=== PATIENT | male | born 1970 | race Caucasian/White ===

== ENCOUNTER 2016-08-21 03:16 | Emergency (ER) | payer MEDICAID ==
[2016-08-21] MEDS ORDERED: Ketorolac 60 MG/2 ML SDV IM ONE (03:40)
[2016-08-21] MEDS ORDERED: HYDROmorphone 1 MG/ML Syringe IM ONE (03:41)
[2016-08-21] MEDS ORDERED: Morphine 10 MG/ML Syringe IVPUSH ONE (04:38)
[2016-08-21] MEDS ORDERED: Sodium Chloride 0.9% 1,000 ML IV SCH (05:45)
--- NOTE | 2016-08-21 06:58 | EDM.PDOC ---
<Savannha Duncan - Last Filed: 08/21/16 12:31> ED HPI LOWER BACK PAIN/INJURY - General Chief Complaint: Back Pain or Injury Stated Complaint: BACK PAIN Time Seen by Provider: 08/21/16 03:34 - Related Data Allergies/ADRs: Allergies Allergy/AdvReac Type Severity Reaction Status Date / Time Penicillins Allergy Cannot Verified 08/21/16 03:25 Remember venom-honey bee Allergy Hives Verified 08/21/16 03:25 [bee venom (honey bee)] Home Meds: Home Meds Lisinopril [Prinivil] 10 mg PO DAILY #30 tablet 02/05/15 [Rx] Metoprolol Tartrate [Lopressor] 50 mg PO BID #60 tablet 02/05/15 [Rx] Omeprazole 40 mg PO DAILY 03/10/16 [History] Course - Vital Signs Last Recorded V/S: Last Vital Signs Temp 36.7 C 08/21/16 11:36 Pulse 92 08/21/16 12:43 Resp 16 08/21/16 12:43 BP 132/89 08/21/16 12:43 Pulse Ox 94 L 08/21/16 12:43 - Orders/Labs/Meds Orders: Active Orders 24 hr Category Date Time Status Lumbar Spine w Cont [CT] Stat Exams 08/21/16 05:37 Taken Labs: Laboratory Tests 08/21/16 08/21/16 08/21/16 Range/Units 03:49 03:49 03:49 WBC 11.5 H (4.5-11.0) K/uL RBC 4.29 L (4.30-5.90) M/uL Hgb 13.2 (12.0-15.0) g/dL Hct 39.7 L (40.0-54.0) % MCV 93 (80-98) fL MCH 31 (27-31) pg MCHC 33 (32-36) % Plt Count 572 H (150-400) K/uL Neut % (Auto) 56 (36-66) % Lymph % (Auto) 34 (24-44) % [place] % (Auto) 7 H (2-6) % Eos % (Auto) 3 (2-4) % Baso % (Auto) 1 (0-1) % ESR 105 H (0-20) mm/hr Sodium (140-148) mmol/L Potassium (3.6-5.2) mmol/L Chloride (100-108) mmol/L Carbon Dioxide (21-32) mmol/L Anion Gap (5.0-14.0) mmol/L BUN (7-18) mg/dL Creatinine (0.8-1.3) mg/dL Est Cr Clr Drug Dosing mL/min Estimated GFR (MDRD) (>60) Glucose (74-106) mg/dL Calcium (8.5-10.1) mg/dL Total Bilirubin (0.2-1.0) mg/dL AST (15-37) U/L ALT (12-78) U/L Alkaline Phosphatase (46-116) U/L C-Reactive Protein 1.86 H (0.0-0.3) mg/dL Total Protein (6.4-8.2) g/dL Albumin (3.4-5.0) g/dL Globulin (2.3-3.5) g/dL Albumin/Globulin Ratio (1.2-2.2) Urine Color Urine Appearance Urine pH (4.5-8.0) Ur Specific [place] (1.008-1.030) Urine Protein (NEGATIVE) mg/dL Urine Glucose (UA) (NEGATIVE) mg/dL Urine Ketones (NEGATIVE) mg/dL Urine Occult Blood (NEGATIVE) Urine Nitrite (NEGAITVE) Urine Bilirubin (NEGATIVE) Urine Urobilinogen (NORMAL) mg/dL Ur Leukocyte Esterase (NEGATIVE) Urine RBC (0-5) Urine WBC (0-5) Ur Epithelial Cells Amorphous Sediment Urine Bacteria Urine Mucus Urine Opiates Screen (NEGATIVE) Ur Oxycodone Screen (NEGATIVE) Urine Methadone Screen (NEGATIVE) Ur Propoxyphene Screen (NEGATIVE) Ur Barbiturates Screen (NEGATIVE) Ur Tricyclics Screen (NEGATIVE) Ur Phencyclidine Scrn (NEGATIVE) Ur Amphetamine Screen (NEGATIVE) U Methamphetamines Scrn (NEGATIVE) Urine MDMA Screen (NEGATIVE) U Benzodiazepines Scrn (NEGATIVE) U Cocaine Metab Screen (NEGATIVE) U Marijuana (THC) Screen (NEGATIVE) Ethyl Alcohol 198 mg/dL 08/21/16 08/21/16 08/21/16 Range/Units 04:49 04:49 05:15 WBC (4.5-11.0) K/uL RBC (4.30-5.90) M/uL Hgb (12.0-15.0) g/dL Hct (40.0-54.0) % MCV (80-98) fL MCH (27-31) pg MCHC (32-36) % Plt Count (150-400) K/uL Neut % (Auto) (36-66) % Lymph % (Auto) (24-44) % [place] % (Auto) (2-6) % Eos % (Auto) (2-4) % Baso % (Auto) (0-1) % ESR (0-20) mm/hr Sodium 147 (140-148) mmol/L Potassium 4.3 (3.6-5.2) mmol/L Chloride 107 (100-108) mmol/L Carbon Dioxide 24 (21-32) mmol/L Anion Gap 16.0 H (5.0-14.0) mmol/L BUN 10 (7-18) mg/dL Creatinine 0.9 (0.8-1.3) mg/dL Est Cr Clr Drug Dosing 111.56 mL/min Estimated GFR (MDRD) > 60 (>60) Glucose 107 H (74-106) mg/dL Calcium 9.0 D (8.5-10.1) mg/dL Total Bilirubin 0.2 D (0.2-1.0) mg/dL AST 37 (15-37) U/L ALT 70 D (12-78) U/L Alkaline Phosphatase 202 H D (46-116) U/L C-Reactive Protein (0.0-0.3) mg/dL Total Protein 8.3 H (6.4-8.2) g/dL Albumin 3.3 L (3.4-5.0) g/dL Globulin 5.0 H (2.3-3.5) g/dL Albumin/Globulin Ratio 0.7 L (1.2-2.2) Urine Color Yellow Urine Appearance Clear Urine pH 5.0 (4.5-8.0) Ur Specific [place] 1.025 (1.008-1.030) Urine Protein 30 H (NEGATIVE) mg/dL Urine Glucose (UA) Normal (NEGATIVE) mg/dL Urine Ketones Negative (NEGATIVE) mg/dL Urine Occult Blood Moderate (NEGATIVE) Urine Nitrite Negative (NEGAITVE) Urine Bilirubin Negative (NEGATIVE) Urine Urobilinogen Normal (NORMAL) mg/dL Ur Leukocyte Esterase Negative (NEGATIVE) Urine RBC 5-10 H (0-5) Urine WBC Not seen (0-5) Ur Epithelial Cells Not seen Amorphous Sediment Not seen Urine Bacteria Not seen Urine Mucus Moderate Urine Opiates Screen Negative (NEGATIVE) Ur Oxycodone Screen Positive H (NEGATIVE) Urine Methadone Screen Negative (NEGATIVE) Ur Propoxyphene Screen Negative (NEGATIVE) Ur Barbiturates Screen Negative (NEGATIVE) Ur Tricyclics Screen Positive H (NEGATIVE) Ur Phencyclidine Scrn Negative (NEGATIVE) Ur Amphetamine Screen Negative (NEGATIVE) U Methamphetamines Scrn Negative (NEGATIVE) Urine MDMA Screen Negative (NEGATIVE) U Benzodiazepines Scrn Positive H (NEGATIVE) U Cocaine Metab Screen Negative (NEGATIVE) U Marijuana (THC) Screen Negative (NEGATIVE) Ethyl Alcohol mg/dL Meds: Medications Discontinued Medications Generic Name Dose Route Start Last Admin Trade Name Freq PRN Reason Stop Dose Admin Hydromorphone HCl 1 mg 08/21/16 03:41 08/21/16 03:49 Dilaudid IM 08/21/16 03:42 1 mg ONETIME ONE Administration Hydromorphone HCl 1 mg 08/21/16 07:32 08/21/16 07:36 Dilaudid IVPUSH 08/21/16 07:33 1 mg ONETIME ONE Administration Sodium Chloride 1,000 mls @ 999 mls/hr 08/21/16 05:45 08/21/16 05:43 Normal Saline IV 999 mls/hr ASDIRECTED ASHLEY Administration Sodium Chloride 100 mls @ 3.5 mls/sec 08/21/16 07:00 08/21/16 07:21 Normal Saline IV 3.5 mls/sec ASDIRECTED ASHLEY Administration Iopamidol 150 ml 08/21/16 06:59 08/21/16 07:20 Isovue-300 (61%) IV 08/22/16 07:00 144 ml . DIRECTED PRN Administration RADIOLOGY EXAM Ketorolac Tromethamine 30 mg 08/21/16 03:40 08/21/16 03:46 Toradol IM 08/21/16 03:41 30 mg ONETIME ONE Administration Ketorolac Tromethamine 30 mg 08/21/16 12:32 08/21/16 12:40 Toradol IVPUSH 08/21/16 12:33 30 mg ONETIME ONE Administration Morphine Sulfate 5 mg 08/21/16 04:38 08/21/16 04:53 Morphine IVPUSH 08/21/16 04:39 5 mg ONETIME ONE Administration Sodium Chloride 10 ml 08/21/16 06:59 08/21/16 07:38 Saline Flush FLUSH 08/21/16 23:00 10 ml ASDIRECTED PRN Administration Keep Vein Open - Re-Assessments/Exams Free Text/Narrative Re-Assessment/Exam: 08/21/16 12:31 cat scan reveals a low dense area in the rt psoas muscle. Hematoma verus infection is the consideration. 08/21/16 12:33 08/21/16 12:33 Dr Bowden was contacted and he is out of town., I did talk to his partner and he wants the pt to contact the office to be seen tomorrow. Departure - Departure Time of Disposition: 12:34 Disposition: Home, Self-Care 01 Condition: fair Clinical Impression: Status post lumbar surgery, Back pain, Deep incisional surgical site infection Instructions: Back Pain, Adult Referrals: PCP,None [Primary Care Provider] - Forms: ED Department Discharge Care Plan Goals: Call the Spine center tomorrow and get an appt soon, send a disc of the cat scan and a copy of the labs and the cat scan reading with the pt. percocet 5/ 325 q6h prn for pain. -- Thse will only last until he is seen in the [facility]. - My Orders Last 24 Hours: My Active Orders 08/21/16 05:37 Lumbar Spine w Cont [CT] Stat - Assessment/Plan Last 24 Hours: My Active Orders 08/21/16 05:37 Lumbar Spine w Cont [CT] Stat <Mahamed Whittaker - Last Filed: 08/21/16 18:04> ED HPI LOWER BACK PAIN/INJURY - General Source: Reports: Patient, Family History Limitations: Reports: No limitations - History of Present Illness INITIAL COMMENTS - FREE TEXT/NARRATIVE: History of present illness: [This patient presents to the emergency room with a history of having had lumbar back surgery August 10. He is presenting now complaining of severe lower back pain that started this morning. The patient has gone through treatment for narcotic addiction and I believe is also an alcoholic. He had a DUI and was on a monitoring program until yesterday and he presents to the ER now intoxicated. He told the nurse that he went for a ride on his motorcycle and that that may have contributed to his pain. Is noted that he receives 90 Percocet and 20 Valium on August 12 and I know that the Percocet is all gone.] Review of systems: As per history of present illness and below otherwise all systems reviewed and negative. Past medical history: As per history of present illness and as reviewed below otherwise noncontributory. Surgical history: As per history of present illness and as reviewed below otherwise noncontributory. Social history: History of narcotic abuse and dependence and alcohol abuse and dependence Family history: As per history of present illness and as reviewed below otherwise noncontributory. Physical exam: HEENT: His face is very runny and he displays slurred speech Lungs: Clear to auscultation, Heart: S1S2, regular Abdomen: Soft, nondistended, nontender. Extremities: Atraumatic, negative for cords or calf pain. Neurovascular unremarkable. Neuro: Awake, alert, oriented Exam nonfocal other than his slurred speech. The nurse informs me that ambulated into the emergency room and was able to go to the room and sat on the bed and lay down. Back: Surgical site appears to be healing well slight erythema around it I think consistent with recent surgery and it is slightly warm to touch but not really hot Diagnostics: [CBC shows a slightly elevated white count, sedimentation rate is elevated at 105, CRP is slightly elevated, his alkaline phosphatase is also elevated.] Therapeutics: [He has been given IV Dilaudid] Impression: [I am concerned that he may have an infection at the surgical site given the elevated sedimentation rate and slightly elevated white count and his complaints of pain] Plan: [We're redoing a lumbar CT and the oncoming ER physician will need to assume care as I am at the end of my shift.] Definitive disposition and diagnosis as appropriate pending reevaluation and review of above. Past Medical History HEENT History: Reports: Hard of hearing Cardiovascular History: Reports: High cholesterol, Hypertension Respiratory History: Reports: SOB Gastrointestinal History: Reports: Gastritis, GERD, Pancreatitis Genitourinary History: Reports: Other (see below) Other Genitourinary History: urinary frequency Musculoskeletal History: Reports: Back pain, chronic, Other (see below) Other Musculoskeletal History: back degeneration Neurological History: Reports: Head trauma, Neuropathy, peripheral Psychiatric History: Reports: ADHD, Addiction, Anxiety, Depression, Panic attack , Suicide attempt, Suicidal ideation Endocrine/Metabolic History: Reports: Obesity/BMI 30+ - Infectious Disease History Infectious Disease History: Reports: Chicken pox - Past Surgical History Cardiovascular Surgical History: Reports: Other (see below) Other Cardiovascular Surgeries/Procedures: echo ef 50-55% GI Surgical History: Reports: EGD, Caroline fundoplication Neurological Surgical History: Reports: Spinal fusion Other Neurological Surgeries/Procedures: broken vertebrae in back. L 3 4 5 Social & Family History - Family History Family Medical History: Noncontributory Cardiac: Reports: AR Other Cardiac Family History: 2 family members with AR prior to age 50 Psychiatric: Reports: Anxiety, Depression - Tobacco Use Smoking Status *Q: Current Every Day Smoker Years of Tobacco use: 20 Packs/Tins Daily: 0.5 Used Tobacco, but Quit: No Month Tobacco Last Used: sept Second Hand Smoke Exposure: No - Caffeine Use Caffeine Use: Reports: Coffee - Alcohol Use Days Per Week of Alcohol Use: 7 Number of Drinks Per Day: 6 Total Drinks Per Week: 42 - Recreational Drug Use Recreational Drug Use: Yes Drug Use in Last 12 Months: Yes Recreational Drug Type: Reports: Benzodiazepines, Dilaudid, Marijuana/Hashish, Methamphetamine, Oxycodone, Vicodin Recreational Drug Use Frequency: Binges Recreational Drug Last Use: unknown - Living Situation & Occupation Living situation: Reports: ( [employer].) Occupation: unemployed ED ROS GENERAL - Review of Systems Review Of Systems: ROS reveals no pertinent complaints other than HPI. ED EXAM,LOWER BACK PAIN/INJURY - Physical Exam Exam: See Below
[2016-08-21] MEDS ORDERED: Iopamidol 612 MG/ML 150 ML Bottle IV PRN (06:59)
[2016-08-21] MEDS ORDERED: Sodium Chloride 0.9% 100 ML IV SCH (07:00)
[2016-08-21] MEDS: Sodium Chloride 0.9% 10 ML Syringe FLUSH PRN ×2 (07:20→07:38)
[2016-08-21] MEDS ORDERED: HYDROmorphone 1 MG/ML Syringe IVPUSH ONE (07:32)
[2016-08-21] MEDS ORDERED: Ketorolac 30 MG/ML SDV IVPUSH ONE (12:32)
[2016-08-21 12:44] VITALS: BP 132/89
== END 2016-08-21 12:53 | disposition home or self-care (01) ==
LOC: JP.ED 03:16
DX: M54.5 Low back pain (principal); T81.4XXA Infection following a procedure, initial encounter; I10 Essential (primary) hypertension; K21.9 Gastro-esophageal reflux disease without esophagitis; F17.210 Nicotine dependence, cigarettes, uncomplicated; E66.9 Obesity, unspecified; Z68.29 Body mass index [BMI] 29.0-29.9, adult; Z88.0 Allergy status to penicillin; Z91.030 Bee allergy status; Z79.899 Other long term (current) drug therapy; Z98.1 Arthrodesis status; Z98.890 Other specified postprocedural states
CPT/HCPCS: 36415; 72132; 80053; 80305; 81001; 85025; 85651; 86140; 96361; 96374; 99284; G0480; J1170; J1885; J2270; J7030; J7040; J7050

== ENCOUNTER 2018-06-05 06:07 | Day surgery (SDC) | payer MEDICAID ==
[2018-06-05] MEDS ORDERED: Lidocaine 1% with EPINEPHrine 1:100,000 50 ML MDV ONE (06:43)
[2018-06-05] MEDS ORDERED: Bupivacaine 0.5% 50 ML MDV ONE (06:43)
[2018-06-05] MEDS ORDERED: Glycopyrrolate 0.2 MG/ML 5 ML MDV ONE (07:26)
[2018-06-05] MEDS ORDERED: Dexamethasone 4 MG/ML SDV ONE (07:26)
[2018-06-05] MEDS ORDERED: Rocuronium 50 MG/5 ML Vial ONE (07:26)
[2018-06-05] MEDS ORDERED: Propofol 200 MG/20 ML SDV ONE (07:26)
[2018-06-05] MEDS ORDERED: Succinylcholine 200 MG/10 ML MDV ONE (07:26)
[2018-06-05] MEDS ORDERED: Neostigmine Methylsulfate 1 MG/ML 5 ML Syringe ONE (07:26)
[2018-06-05] MEDS ORDERED: Ondansetron 4 MG/2 ML SDV ONE (07:26)
[2018-06-05] MEDS ORDERED: fentaNYL 250 MCG/5 ML SDV ONE ×2 (07:27→08:44)
[2018-06-05] MEDS ORDERED: Sodium Chloride 0.9% 1,000 ML IV SCH (07:30)
[2018-06-05] MEDS ORDERED: metroNIDAZOLE/Normal Saline 500 MG in Premix Bag 1 BAG IV ONE (08:00)
[2018-06-05] MEDS ORDERED: ceFAZolin 2 GM in Sodium Chloride 0.9% 100 ML IV ONE (08:00)
[2018-06-05] MEDS ORDERED: ceFAZolin 2 GM in Premix Bag 1 BAG IV ONE (08:00)
[2018-06-05] MEDS ORDERED: diphenhydrAMINE 50 MG/ML SDV IVPUSH PRN (08:03)
[2018-06-05] MEDS ORDERED: Bisacodyl 5 MG Tab PO PRN (08:03)
[2018-06-05] MEDS ORDERED: Zolpidem 5 MG Tab PO PRN (08:03)
[2018-06-05] MEDS ORDERED: Acetaminophen/oxyCODONE 325-5 MG Tab PO PRN (08:03)
[2018-06-05] MEDS ORDERED: Benzocaine/Cetylpyridinium/Menthol Lozenge MUCMEM PRN (08:03)
[2018-06-05] MEDS ORDERED: Promethazine 25 MG/ML SDV IM PRN (08:03)
[2018-06-05] MEDS ORDERED: hydrOXYzine HCl 100 MG/2 ML SDV IM PRN (08:03)
[2018-06-05] MEDS ORDERED: Ropivacaine 50 ML, Dexamethasone 8 MG, EPINEPHrine 0.4 MG, Sodium Chloride 0.9% 27.6 ML NERVRT SCH ×4 (08:30)
[2018-06-05] MEDS ORDERED: Ketorolac 60 MG/2 ML SDV ONE (09:00)
[2018-06-05 11:28] VITALS: BP 106/58
--- NOTE | 2018-06-05 15:31 | OR ---
DATE OF PROCEDURE: 06/05/2018 PROCEDURE: Laparoscopic cholecystectomy. PREOPERATIVE DIAGNOSIS: Cholecystitis. POSTOPERATIVE DIAGNOSIS: Cholecystitis. RISKS: Risks, benefits, alternatives, and limitations including, but not limited to infection, bleeding, injury to abdominal structures, injury to cystic duct, common bile duct injuries, leaks, biloma, hematoma, and other risks not explained here were explained to the patient who wished to proceed. PROCEDURE IN DETAIL: The patient was placed in supine position. A supraumbilical curvilinear incision was made. A Veress needle was used to enter the abdomen without abnormality. A drop test was performed without abnormality. The abdomen was subsequently insufflated. This was followed by an Optiview trocar. No evidence of enterotomy or injury was noted during entry. Additional 10 and two 5 mm ports were entered under direct visualization. The gallbladder was retracted cephalad. The infundibulum was retracted inferolaterally. Using blunt dissection, a "clear view" gallbladder was noted with a single pulsatile structure into the gallbladder and a single nonpulsatile structure in the gallbladder. These were subsequently clipped x3 and transected. The remaining one-third of the gallbladder was removed off the gallbladder bed without difficulty. The patient did have some mild bleeding after gallbladder removal which required additional electrocautery. A piece of Surgisis will be placed at the end after removal of any remnant blood and irrigation products. Prior to this, the gallbladder fossa was inspected for 1 minute under direct pressure. No abnormalities were noted. The gallbladder was removed through the upper port using a bag without difficulty. The air was removed. The wounds were then thoroughly irrigated, closed with 3-0 Vicryl and 4-0 Vicryl in interrupted running fashion and dressed. Dermabond was applied. The patient tolerated the procedure well. Al Ruiz MD /[id number]
== END 2018-06-05 14:49 | disposition home or self-care (01) ==
LOC: JP.SDS 06:07 → JP.MS 09:10 → JP.SDS 14:49
PROVIDERS: ATTEND Surgery
DX: K81.1 Chronic cholecystitis (principal); D76.3 Other histiocytosis syndromes; I10 Essential (primary) hypertension; F17.210 Nicotine dependence, cigarettes, uncomplicated; E66.9 Obesity, unspecified; Z68.31 Body mass index [BMI] 31.0-31.9, adult; F32.9 Major depressive disorder, single episode, unspecified; Z79.899 Other long term (current) drug therapy
CPT/HCPCS: 36415; 47562; 80053; 85027; A9270; J0171; J0330; J0690; J1100; J1885; J2405; J2704; J2710; J2795; J3010; J3490; J7030; J7050; 88304

== ENCOUNTER 2018-10-24 17:53 | Emergency (ER) | payer MEDICAID ==
--- NOTE | 2018-10-24 18:31 | EDM.PDOC ---
ED HPI GENERAL MEDICAL PROBLEM - General Chief Complaint: Trauma Stated Complaint: TRAUMA VIA NORTH Time Seen by Provider: 10/24/18 18:05 Source of Information: Reports: Patient, EMS, Family History Limitations: Reports: No Limitations - History of Present Illness INITIAL COMMENTS - FREE TEXT/NARRATIVE: 48-year-old male was cutting down a large tree when it fell on top of him. He has chronic back pain and that is worsened, he also has developed some thoracic back pain and some facial abrasions and lacerations. He thinks he lost consciousness. He has a mild headache and neck discomfort. No shortness of breath or significant chest discomfort, he has moderate abdominal discomfort. He was given 200 g of fentanyl in route per EMS. He has had 2 back surgeries on his lumbar spine in the past. He feels some pain radiating down his right leg which is a symptom he has had in the past but it is worse. No weakness of the lower extremities, no extremity injuries. GCS is 15. Onset: Sudden Duration: Hour(s): (Within the last hour) Location: Reports: Head, Face, Neck, Back Associated Symptoms: Denies: Confusion, Chest Pain, Cough, Nausea/Vomiting, Shortness of Breath - Related Data Allergies Allergy/AdvReac Type Severity Reaction Status Date / Time hydromorphone [From Dilaudid] Allergy Other Verified 10/24/18 18:01 Penicillins Allergy Cannot Verified 10/24/18 18:01 Remember venom-honey bee Allergy Hives Verified 10/24/18 18:01 [bee venom (honey bee)] Home Meds: Home Meds Acetaminophen [Tylenol Extra Strength] 500 mg PO TID 11/24/17 [History] Cholecalciferol (Vitamin D3) [Decara] 50,000 units PO ASDIRECTED 06/04/18 [ History] Cyclobenzaprine HCl 10 mg PO TID PRN 06/04/18 [History] DULoxetine HCl [Cymbalta] 60 mg PO DAILY 06/04/18 [History] Enalapril Maleate [Vasotec] 2.5 mg PO DAILY 06/04/18 [History] Gabapentin [Neurontin] 600 mg PO TID 06/04/18 [History] Past Medical History HEENT History: Reports: Hard of Hearing, Impaired Vision Cardiovascular History: Reports: High Cholesterol, Hypertension Respiratory History: Reports: SOB Gastrointestinal History: Reports: Cholelithiasis, GERD Genitourinary History: Reports: Other (See Below) Other Genitourinary History: urinary frequency Musculoskeletal History: Reports: Back Pain, Chronic, Fracture Other Musculoskeletal History: back degeneration Neurological History: Reports: Concussion, Headaches, Chronic, Neuropathy, Peripheral Psychiatric History: Reports: ADHD, Addiction, Anxiety, Depression, Panic Attack , Suicide Attempt, Suicidal Ideation Endocrine/Metabolic History: Reports: Obesity/BMI 30+ - Infectious Disease History Infectious Disease History: Reports: Chicken Pox - Past Surgical History HEENT Surgical History: Reports: Myringotomy w Tube(s) GI Surgical History: Reports: Cholecystectomy, EGD, Caroline Fundoplication Neurological Surgical History: Reports: Lumbar Spine, Spinal Fusion Social & Family History - Family History Family Medical History: Noncontributory Cardiac: Reports: DC Other Cardiac Family History: 2 family members with DC prior to age 50 Psychiatric: Reports: Anxiety, Depression - Tobacco Use Smoking Status *Q: Heavy Tobacco Smoker Years of Tobacco use: 25 Packs/Tins Daily: 1.5 - Caffeine Use Caffeine Use: Reports: Coffee, Soda, Tea Other Caffeine Use: 4 to 5 cups perday - Recreational Drug Use Recreational Drug Use: No - Living Situation & Occupation Living situation: Reports: Occupation: Unemployed Review of Systems - Review of Systems Review Of Systems: See Below Constitutional: Denies: Fever Eyes: Reports: Other (No visual or periorbital complaints, no foreign body sensation or eye trauma). Denies: Vision Change Ears: Reports: Other (A small amount of blood at the left ear canal with some abrasions of the ear helix) Nose: Reports: No Symptoms Mouth/Throat: Reports: No Symptoms (He does wear dentures) Respiratory: Reports: Pleuritic Chest Pain (Some mild pleuritic pain, no shortness of breath or focal chest pain) Cardiovascular: Reports: No Symptoms Musculoskeletal: Reports: Neck Pain, Back Pain (Especially thoracic and lumbar spine) Skin: Reports: Other (Abrasions on his face and left shoulder) Neurological: Denies: Dizziness, Trouble Speaking, Difficulty Walking Psychiatric: Reports: No Symptoms ED EXAM, GENERAL - Physical Exam Exam: See Below Exam Limited By: No Limitations General Appearance: Alert, No Apparent Distress, Other (Patient is shaken and anxious but not acutely distressed. His GCS is 15 and is conversing normally, no shortness of breath.) Eye Exam: Bilateral Eye: EOMI, PERRL Ears: Other (Visit superficial abrasion on the left ear pinna, the canals are clear and tympanic membranes normal) Nose: Normal Inspection Throat/Mouth: Normal Inspection, No Airway Compromise, Other (Dentures are present) Head: Other (Superficial abrasions on the right face with a small less than 1 cm irregular shallow avulsion of the left lateral cheek) Neck: Supple, Other (Some paracervical tenderness to palpation but no pain with movement of the neck) Respiratory/Chest: No Respiratory Distress, Lungs Clear Cardiovascular: Regular Rate, Rhythm GI/Abdominal: Tender (Reacts with some tenderness to palpation across the mid abdomen, no distention, bruising or abrasions of the abdomen) Back Exam: Vertebral Tenderness (Very tender to percussion and palpation of the lumbar spine and mid thoracic spine) Extremities: Other (Only evidence of trauma to the 4 extremities is a small abrasion over the left clavicle, there is no tenderness to palpation of the clavicle) Neurological: Alert, Oriented, No Motor/Sensory Deficits Psychiatric: Normal Affect, Normal Mood Course - Vital Signs Last Recorded V/S: Last Vital Signs Temp 96.1 F 10/24/18 19:19 Pulse 98 10/24/18 19:19 Resp 14 10/24/18 19:19 BP 157/87 H 10/24/18 19:19 Pulse Ox 96 10/24/18 19:19 - Orders/Labs/Meds Labs: Laboratory Tests 10/24/18 10/24/18 10/24/18 Range/Units 18:25 18:25 18:35 WBC 13.0 H (4.5-11.0) K/uL RBC 4.83 (4.30-5.90) M/uL Hgb 14.8 D (12.0-15.0) g/dL Hct 44.0 (40.0-54.0) % MCV 91 (80-98) fL MCH 31 (27-31) pg MCHC 34 (32-36) % Plt Count 343 (150-400) K/uL Neut % (Auto) 59 (36-66) % Lymph % (Auto) 25 (24-44) % [place] % (Auto) 13 H (2-6) % Eos % (Auto) 2 (2-4) % Baso % (Auto) 1 (0-1) % Sodium 138 L (140-148) mmol/L Potassium 3.3 L (3.6-5.2) mmol/L Chloride 100 (100-108) mmol/L Carbon Dioxide 24 (21-32) mmol/L Anion Gap 17.3 H (5.0-14.0) mmol/L BUN 33 H D (7-18) mg/dL Creatinine 1.1 (0.8-1.3) mg/dL Est Cr Clr Drug Dosing 86.64 mL/min Estimated GFR (MDRD) > 60 (>60) Glucose 112 H (74-106) mg/dL Calcium 9.6 (8.5-10.1) mg/dL Ethyl Alcohol < 3 mg/dL Meds: Medications Discontinued Medications Generic Name Dose Route Start Last Admin Trade Name Freq PRN Reason Stop Dose Admin Bacitracin 1 dose 10/24/18 18:36 10/24/18 19:16 Bacitracin Oint 1 Gm TOP 10/24/18 18:37 1 dose ONETIME ONE Administration Hydromorphone HCl 0.5 mg 10/24/18 19:09 10/24/18 19:16 Dilaudid IVPUSH 10/24/18 19:10 0.5 mg ONETIME ONE Administration Sodium Chloride 80 mls @ 3 mls/sec 10/24/18 18:45 10/24/18 18:55 Normal Saline IV 3 mls/sec ASDIRECTED ASHLEY Administration Iopamidol 100 ml 10/24/18 18:45 10/24/18 18:55 Isovue-300 (61%) IV 100 ml . DIRECTED ASHLEY Administration Oxycodone/Acetaminophen 1 tab 10/24/18 19:59 10/24/18 20:04 Percocet 325-10 Mg PO 1 tab ONETIME PRN Administration Pain (moderate 4-6) Sodium Chloride 10 ml 10/24/18 18:36 10/24/18 18:55 Saline Flush FLUSH 10 ml ASDIRECTED PRN Administration Keep Vein Open - Re-Assessments/Exams Free Text/Narrative Re-Assessment/Exam: 10/24/18 18:31 Patient tetanus is current. The wounds of his face were cleaned and nothing needs repair, although he may need a small amount of debridement of the tiny avulsion on his cheek. A CBC and BMP were obtained with the intention of a CT of the head neck chest and abdomen. 10/24/18 19:29 White count is 13,000, hemoglobin normal. Potassium is 3.3, the rest of his BMP is relatively normal and EtOH is 0. He remained stable while awaiting CT results. The head CT is negative, he was asking for more additional pain medication and was given 0.5 mg of IV Dilaudid. 10/24/18 19:[address] did comment on some fluid in the left maxillary sinus. He was reexamined and had no pain, swelling or bruising in the periorbital area of the left face or the zygomatic arch. Just a superficial facial abrasion over the lateral face. He was informed of the possibility of a bony injury because of the finding but wanted no more investigation and I was comfortable with that without any evidence externally of trauma over the maxillary sinus area. The abdomen and chest CTs also returned normal. He was discharged with 15 doses of Percocet to use for extra pain control over the next 48 hours. He'll return if problems develop or he has other concerns. Departure - Departure Time of Disposition: 20:10 Disposition: Home, Self-Care 01 Clinical Impression: Multiple contusions Facial abrasion Qualifiers: Encounter type: initial encounter Qualified Code(s): S00.81XA - Abrasion of other part of head, initial encounter Back strain Qualifiers: Encounter type: initial encounter Qualified Code(s): S39.012A - Strain of muscle, fascia and tendon of lower back, initial encounter - Discharge Information Instructions: Abrasion Referrals: PCP,None [Primary Care Provider] - Forms: ED Department Discharge Care Plan Goals: Ice to sore areas over the next 2 days would be helpful, ibuprofen along with stronger pain medication for breakthrough pain as directed. Activity as tolerated and return anytime if you develop worsening symptoms or other concerns. Keep her abrasions clean while healing.
[2018-10-24] MEDS ORDERED: Sodium Chloride 0.9% 10 ML Syringe FLUSH PRN (18:36)
[2018-10-24] MEDS ORDERED: Bacitracin Oint 1 GM U/D Packet TOP ONE (18:36)
[2018-10-24] MEDS ORDERED: Iopamidol 612 MG/ML 100 ML Bottle IV SCH (18:45)
[2018-10-24] MEDS ORDERED: Sodium Chloride 0.9% 80 ML IV SCH (18:45)
[2018-10-24] MEDS ORDERED: HYDROmorphone 0.5 MG/0.5 ML Syringe IVPUSH ONE (19:09)
[2018-10-24 19:19] VITALS: BP 157/87
--- NOTE | 2018-10-24 19:19 | CRLCT ---
INDICATION: trauma logging accident CT HEAD WITHOUT CONTRAST TECHNIQUE: Multiple axial CT images were performed through the head without intravenous contrast administration. COMPARISON: 03/13/[address] FINDINGS: The exam is limited by motion. No definite acute intracranial hemorrhage is identified. No extra-axial collections are evident and there is no mass effect or midline shift. Ventricles are normal in size and configuration. Brain parenchyma appears normal with unremarkable tracy-white differentiation. Osseous structures are within normal limits and no fractures are seen. Included portions of the paranasal sinuses and mastoid air cells are normally aerated. IMPRESSION: Normal non-contrast head CT. YULIET LUJAN MD [facility] Dictated by: Jose A Lujan MD @ 10/24/2018 19:18:49 (Electronically Signed)
--- NOTE | 2018-10-24 19:28 | CRLCT ---
INDICATION: trauma, tree fell on patient logging accident CT CERVICAL SPINE WITHOUT CONTRAST TECHNIQUE: Multidetector axial CT imaging was performed through the cervical spine, without contrast. Sagittal and coronal reconstructions were generated. FINDINGS: The exam is significantly limited by motion. No definite acute fractures are identified. Osseous alignment is unremarkable and no subluxation is seen in the cervical spine. Prevertebral soft tissues appear normal. Included portions of the airway and lung apices are within normal limits. There is opacification of the left maxillary sinus which could be due to sinusitis or could reflect hemorrhage from a facial fracture. IMPRESSION: 1. Limited exam due to motion. 2. No fracture, subluxation, or other acute finding identified in the cervical spine. 3. Opacification of the left maxillary sinus as noted above. If clinically indicated this could be further evaluated with facial CT. YULIET LUJAN MD [facility] Dictated by Jose A Lujan MD @ 10/24/2018 7:25:50 PM Dictated by: Jose A Lujan MD @ 10/24/2018 19:26:16 (Electronically Signed)
--- NOTE | 2018-10-24 19:40 | CRLCT ---
INDICATION: trauma, tree fell on patient logging accident Thoracic and lumbar pain hx lumbar surgery CT CHEST, ABDOMEN, AND PELVIS WITH CONTRAST TECHNIQUE: Multidetector CT imaging was performed through the chest, abdomen, and pelvis following intravenous contrast administration using 100 mL Isovue 300. Coronal and sagittal reconstructions were generated. COMPARISON: 07/04/2018 CT abdomen and pelvis. FINDINGS: Lungs and airways: Mild bibasilar lung atelectasis. No confluent infiltrates, suspicious nodules, or masses. Central airways are patent. Pleura and pleural spaces: No pleural effusions or pneumothorax. Heart and mediastinum: Normal heart size. No significant pericardial effusion. A few borderline enlarged mediastinal lymph nodes in the right paratracheal, AP window, precarinal, and subcarinal spaces. No pathologically enlarged mediastinal lymph nodes. Vascular structures: Normal caliber aorta without evidence of acute injury. Chest wall and axillae: No mass or axillary lymphadenopathy. Liver and spleen: Within normal limits. Gallbladder and bile ducts: Status post cholecystectomy, as before. No biliary dilation identified. Pancreas, adrenals, and retroperitoneum: No pancreatic or adrenal mass. No pathologically enlarged lymph nodes identified in the abdomen or pelvis. Kidneys, ureters, and urinary bladder: No evidence of acute renal injury. Unchanged small bilateral renal cortical cysts. No bladder mass or definite wall thickening. Gastrointestinal tract and peritoneum: Postoperative changes at the esophagogastric junction suggesting prior Caroline fundoplication Normal caliber bowel without wall thickening. Normal appendix. No free air, abscess, or significant free fluid. Reproductive organs: No pelvic masses. Bones: No definite acute fractures are identified. There are postoperative changes of spinal fusion in the lower lumbar spine, as before. IMPRESSION: 1. No acute intrathoracic or intraabdominal abnormality identified. No acute fractures are seen. 2. Nonacute findings as detailed above. YULIET LUJAN MD [facility] Dictated by Jose A Lujan MD @ 10/24/2018 7:36:50 PM Dictated by: Jose A Lujan MD @ 10/24/2018 19:39:09 (Electronically Signed)
[2018-10-24] MEDS ORDERED: Acetaminophen/oxyCODONE 325-10 MG Tab PO PRN (19:59)
== END 2018-10-24 20:10 | disposition home or self-care (01) ==
LOC: JP.ED 17:53
DX: S39.012A Strain of muscle, fascia and tendon of lower back, initial encounter (principal); S00.81XA Abrasion of other part of head, initial encounter; S40.212A Abrasion of left shoulder, initial encounter; S00.412A Abrasion of left ear, initial encounter; I10 Essential (primary) hypertension; K21.9 Gastro-esophageal reflux disease without esophagitis; E78.00 Pure hypercholesterolemia, unspecified; F90.9 Attention-deficit hyperactivity disorder, unspecified type; F41.9 Anxiety disorder, unspecified; F32.9 Major depressive disorder, single episode, unspecified; F17.210 Nicotine dependence, cigarettes, uncomplicated; Z88.0 Allergy status to penicillin; Z91.030 Bee allergy status; Z88.5 Allergy status to narcotic agent; Z79.899 Other long term (current) drug therapy; W14.XXXA Fall from tree, initial encounter
CPT/HCPCS: 36415; 70450; 71260; 72125; 74177; 80048; 85025; 96374; 99284; A9270; G0480; J1170; J7030; Q9967